=== PATIENT | female | born 1995 | race African-American/Black ===

== ENCOUNTER 2017-05-09 05:01 | Emergency (ER) | payer OTHER ==
[2017-05-09] MEDS ORDERED: ONDANSETRON 4 MG/2 ML VIAL IVPB ONE (05:12)
[2017-05-09] MEDS ORDERED: SODIUM CHLORIDE 1,000 ML IV STA (05:12)
--- NOTE | 2017-05-09 05:13 | PDOC ---
History of Present Illness - General Chief Complaint: Pain Stated Complaint: ABD PAIN Time Seen by Provider: 05/09/17 05:11 History Source: Patient - History of Present Illness Initial Comments: 05/09/17 05:22 21 year old female c/o right flank pain and dysuria since 4 pm. patient reports nausea, vomiting 6x, prior to arrival denies pmhx Past History - Past Medical History Allergies/Adverse Reactions: Allergies Allergy/AdvReac Type Severity Reaction Status Date / Time No Known Allergies Allergy Verified 05/09/17 05:08 Home Medications: Ambulatory Orders Loratadine [Claritin] 10 mg PO DAILY 05/09/17 - Psycho/Social/Smoking Cessation Hx Suicidal Ideation: No Smoking History: Never smoked Hx Alcohol Use: No Drug/Substance Use Hx: No Substance Use Type: None Review of Systems - Review of Systems Able to Perform ROS?: Yes Is the patient limited Indian proficient: No ABD/GI: Yes: Nausea, Vomiting. No: Symptoms Reported, See HPI, Abdominal Distended, Abd. Pain w/ defecation, Blood Streaked Bowels, Constipated, Diarrhea , Difficulty Swallowing, Poor Appetite, Poor Fluid Intake, Rectal Bleeding, Indigestion, Abdominal cramping, Tarry Stools, Other : Yes: Dysuria, Flank Pain *Physical Exam - Vital Signs Last Vital Signs Temp Pulse Resp BP Pulse Ox 98.3 F 93 H 22 106/77 99 05/09/17 05:09 05/09/17 05:09 05/09/17 05:09 05/09/17 05:09 05/09/17 05:09 - Physical Exam General Appearance: Yes: Appropriately Dressed Respiratory/Chest: positive: Lungs Clear, Normal Breath Sounds Gastrointestinal/Abdominal: negative: Tender Musculoskeletal: positive: CVA Tenderness, CVA Tenderness (R) Integumentary: positive: Normal Color, Dry, Warm Neurologic: positive: Fully Oriented, Alert, Normal Mood/Affect ED Treatment Course - LABORATORY CBC & Chemistry Diagram: 05/09/17 05:28 05/09/17 05:28 Progress Note - Progress Note Progress Note: A: renal colic vs pyelonephritis P: cbc cmp Ua ucx spira; CT IVF pain control zofran *DC/Admit/Observation/Transfer Diagnosis at time of Disposition: Renal colic on right side
--- NOTE | 2017-05-09 05:17 | PDOC ---
*Physical Exam - Vital Signs Last Vital Signs Temp Pulse Resp BP Pulse Ox 98.3 F 93 H 22 106/77 99 05/09/17 05:09 05/09/17 05:09 05/09/17 05:09 05/09/17 05:09 05/09/17 05:09 Medical Decision Making - Medical Decision Making 05/09/17 05:17 agree with care from ASSOCIATE PROFESSOR OF BIOLOGY Elmer
[2017-05-09] MEDS ORDERED: KETOROLAC TROMETHAMINE 30 MG/1 ML VIAL IVPUSH ONE (05:27)
[2017-05-09 05:56] LABS: URINE APPEARANCE SLCLOUDY; URINE BILIRUBIN NEGATIVE (NEGATIVE); URINE BLOOD 2+ (NEGATIVE); URINE COLOR YELLOW; URINE GLUCOSE (UA) NEGATIVE (NEGATIVE); URINE KETONE NEGATIVE (NEGATIVE); URINE NITRITE NEGATIVE (NEGATIVE); URINE PROTEIN NEGATIVE (NEGATIVE)
[2017-05-09 05:57] LABS: BASOPHIL 0.3 % (0-2.0); MCHC 33.4 g/dl (32.0-36.0); MEAN CELL VOLUME 83.8 fl (80-96); MEAN PLT VOLUME 8.4 fl (7.5-11.1); NEUTROPHILS 63.8 % (42.8-82.8); PLATELET COUNT 229 K/MM3 (134-434); RDW 13.4 % (11.6-15.6); WHITE BLOOD COUNT 6.1 K/mm3 (4.0-10.0)
[2017-05-09] MEDS ORDERED: KETOROLAC TROMETHAMINE 30 MG/1 ML VIAL ONE (05:57)
[2017-05-09] MEDS ORDERED: ONDANSETRON 4 MG/2 ML VIAL ONE (05:57)
[2017-05-09 06:01] LABS: URINE LEUK ESTERASE 2+ (NEGATIVE)
[2017-05-09 06:09] VITALS: TEMP 98.3; BMI 27.4
[2017-05-09 06:29] LABS: ALBUMIN 3.5 g/dl (3.4-5.0); ANION GAP 6 (8-16); BILIRUBIN,TOTAL 0.2 mg/dL (0.2-1.0); CALCIUM 8.7 mg/dL (8.5-10.1); CO2 29 mmol/L (21-32); CREATININE 0.9 mg/dL (0.55-1.02); GLUCOSE,RANDOM 109 mg/dL (74-106); SGOT/AST 13 U/L (15-37); SGPT/ALT 24 U/L (12-78)
[2017-05-09 06:30] LABS: ALK PHOS 80 U/L (45-117)
--- NOTE | 2017-05-09 07:11 | PDOC ---
*Physical Exam - Vital Signs Last Vital Signs Temp Pulse Resp BP Pulse Ox 98.3 F 93 H 22 106/77 99 05/09/17 05:09 05/09/17 05:09 05/09/17 05:09 05/09/17 05:09 05/09/17 05:09 ED Treatment Course - LABORATORY CBC & Chemistry Diagram: 05/09/17 05:28 05/09/17 05:28 - ADDITIONAL ORDERS Additional order review: Laboratory Results 05/09/17 05/09/17 05:28 05:28 Sodium 140 Potassium 3.8 Chloride 105 Carbon Dioxide 29 Anion Gap 6 L BUN 18 Creatinine 0.9 Creat Clearance w eGFR > 60 Random Glucose 109 H Calcium 8.7 Total Bilirubin 0.2 AST 13 L ALT 24 Alkaline Phosphatase 80 Total Protein 7.0 Albumin 3.5 Lipase 129 Serum , Qual Negative Urine Color Yellow Urine Appearance Slcloudy Urine pH 5.0 Urine Protein Negative Urine Glucose (UA) Negative Urine Ketones Negative Urine Blood 2+ H Urine Nitrite Negative Urine Bilirubin Negative Urine Urobilinogen 2.0 H Ur Leukocyte Esterase 2+ H 05/09/17 05:28 RBC 4.55 MCV 83.8 MCHC 33.4 RDW 13.4 MPV 8.4 Neutrophils % 63.8 Lymphocytes % 27.6 Monocytes % 6.3 Eosinophils % 2.0 Basophils % 0.3 - Medications Given in the ED: ED Medications Discontinued Medications Generic Name Dose Route Start Last Admin Trade Name Freq PRN Reason Stop Dose Admin Sodium Chloride 1,000 mls @ 1,000 mls/hr 05/09/17 05:12 05/09/17 05:52 Normal Saline - IV 05/09/17 06:11 1,000 mls/hr ASDIR STA Administration Ketorolac Tromethamine 30 mg 05/09/17 05:27 05/09/17 06:02 Toradol Injection - IVPUSH 05/09/17 05:28 30 mg ONCE ONE Administration Ondansetron HCl 4 mg 05/09/17 05:12 05/09/17 06:02 Zofran Injection IVPB 05/09/17 05:13 4 mg ONCE ONE Administration Medical Decision Making - Medical Decision Making 05/09/17 07:10 Sign out received from Janelle Payne NP, awaiting test to sent pt. for spiral CT to r/o kidney stones 05/09/17 08:19 CT results Impression: Multiple tiny right renal stones. Tiny left bladder stone may reflect a recently passed stone from either ureter without evidence of hydronephrosis or hydroureter. Pt. also has 2+ leukocytes. Will discharge home at this time. Will treat for UTI and stone at this time. Will precribe Keflex, and ibuprofen. Pt. was instructed to increase her fluid intake. She was also given a strainer to try and catch the stone in her bladder. Pt. is to follow up with with her PCP and urology. Pt, understands all discharge instructions and all questions were answered at this time. *DC/Admit/Observation/Transfer Diagnosis at time of Disposition: Renal colic on right side, Calculus of kidney Urinary tract infection Qualifiers: Urinary tract infection type: site unspecified Hematuria presence: with hematuria Qualified Code(s): N39.0 - Urinary tract infection, site not specified ; R31.9 - Hematuria, unspecified - Discharge Dispostion Disposition: HOME Condition at time of disposition: Improved Admit: No - Referrals Referrals: Sara Patterson MD [Primary Care Provider] - Elmer Lin MD [Staff Physician] - - Patient Instructions Printed Discharge Instructions: DI for Kidney Stones, DI for Urinary Tract Infection (UTI) Additional Instructions: You have stones in your right kidney and a stone in your bladder. Stones in the kidneys are generally not painful. The stone in your bladder is most likely a stone that you passed this evening. The pain should resolve. You may be sore for the next 24-48 hours. Take ibuprofen 800mg TID for the next week. You also have a urinary tract infection. Take the antibiotic as prescribed and take the full dose even if you feel better. Follow up with your primary care doctor within the week. You should also follow up with a urologist. Their number is attached in the discharge instructions. If you have worsening pain, fevers, pain on urination, chills, nausea, or vomiting, or any changes in your symptoms return to the ED.
[2017-05-09 08:30] LABS: URINE BACTERIA FEW /hpf (NONE SEEN); URINE HYALINE CAST 1 /lpf; URINE MUCUS MANY; URINE RBC 52 /hpf (0-3); URINE WBC 23 /hpf (3-5)
[2017-05-09 09:03] VITALS: BP 125/85; PULSE 91
== END 2017-05-09 09:04 | disposition home or self-care (01) ==
LOC: JER 05:01
PROC: 3E0333Z Introduction of Anti-inflammatory into Peripheral Vein, Percutaneous Approach (ICD-10-PCS; principal; 2017-05-09)
PROC: 3E033GC Introduction of Other Therapeutic Substance into Peripheral Vein, Percutaneous Approach (ICD-10-PCS; 2017-05-09)
PROC: 3E0337Z Introduction of Electrolytic and Water Balance Substance into Peripheral Vein, Percutaneous Approach (ICD-10-PCS; 2017-05-09)
DX: N23 Unspecified renal colic (principal)
CPT/HCPCS: 36415; 74176; 80053; 81003; 81015; 83690; 84703; 85025; 87086; 87186; 99284-25

== ENCOUNTER 2018-03-10 16:27 | Emergency (ER) | payer OTHER ==
[2018-03-10 16:40] VITALS: BMI 24.8
--- NOTE | 2018-03-10 18:07 | PDOC ---
History of Present Illness - History of Present Illness Initial Comments: 03/10/18 18:06 22 yo F with no significant pmh who p/w abdominal pain. Reports 1 week of remitting, sharp spasmodic abdominal pain, with no identifiable triggers or alleviators. Endorses nausea without vomiting, and 1-2 stools per day, with absent BPR or loose stools. Denies postprandial pain. Denies F/C, N/V, CP, SOB, abdominal pain, diarrhea, constipation, vaginal bleeding/burning/itching, dyspareurnia, pelvic pain. urinary complaints, hematuria, weakness, lightheadedness, sensory changes. Recently evaluated at [facility] this AM and started on antibiotics for vaginosis. PMHx: as noted above. Denies h/o endoscopy. Denies h/o abdominal surgery. Does not f/w GI. ROS: as noted above SHx: Intermittent Etoh. Denies tobacco, or IVDA. Recreational marijuanna. No recent travel, hiking, camping. Denies h/o STI's. Mutliple sexual partners with intermittent OCP use. <Ralph Martinez - Last Filed: 03/10/18 22:05> <Reji Martinez - Last Filed: 03/10/18 22:15> - General Chief Complaint: Pain, Acute Stated Complaint: ABD PAIN Time Seen by Provider: 03/10/18 17:44 Past History - Past Medical History Cardiac Disorders: Yes (MURMUR) COPD: No Psychiatric Problems: Yes (ANXIETY) - Suicide/Smoking/Psychosocial Hx Smoking History: Never smoked Hx Alcohol Use: No Drug/Substance Use Hx: No Substance Use Type: None, Marijuana <Ralph Martinez - Last Filed: 03/10/18 22:05> <Reji Martinez - Last Filed: 03/10/18 22:15> - Past Medical History Allergies/Adverse Reactions: Allergies Allergy/AdvReac Type Severity Reaction Status Date / Time No Known Allergies Allergy Verified 03/10/18 16:36 Home Medications: Ambulatory Orders Cephalexin [Keflex] 500 mg PO BID 7 Days #14 capsule MDD 2 tab 03/10/18 Trazodone HCl 50 mg PO HS 03/10/18 Review of Systems - Review of Systems Comments:: 03/10/18 18:06 GENERAL/CONSTITUTIONAL: No fever or chills. No weakness. HEAD, EYES, EARS, NOSE AND THROAT: No change in vision. No ear pain or discharge. No sore throat. CARDIOVASCULAR: No chest pain or shortness of breath RESPIRATORY: No cough, wheezing, or hemoptysis. GASTROINTESTINAL:+ abdominal pain and nausea. No vomiting, diarrhea or constipation. GENITOURINARY: No dysuria, frequency, or change in urination. MUSCULOSKELETAL: No joint or muscle swelling or pain. No neck or back pain. SKIN: No rash NEUROLOGIC: No headache, vertigo, loss of consciousness, or change in strength/ sensation. ENDOCRINE: No increased thirst. No abnormal weight change HEMATOLOGIC/LYMPHATIC: No anemia, easy bleeding, or history of blood clots. ALLERGIC/IMMUNOLOGIC: No hives or skin allergy. <Ralph Martinez - Last Filed: 03/10/18 22:05> *Physical Exam - Vital Signs Last Vital Signs Temp Pulse Resp BP Pulse Ox 98.1 F 80 19 107/56 99 03/10/18 16:36 03/10/18 16:36 03/10/18 16:36 03/10/18 16:36 03/10/18 16:36 - Physical Exam Comments: 03/10/18 18:06 GENERAL: Awake, alert, and fully oriented, in no acute distress HEAD: No signs of trauma, normocephalic, atraumatic EYES: PERRLA, EOMI, sclera anicteric, conjunctiva clear ENT: Hearing grossly normal, nares patent, oropharynx clear without exudates. Moist mucosa NECK: Normal ROM, supple, no lymphadenopathy, JVD, or masses LUNGS: No distress, speaks full sentences, clear to auscultation bilaterally HEART: Regular rate and rhythm, normal S1 and S2, no murmurs, rubs or gallops, peripheral pulses normal and equal bilaterally. ABDOMEN: Soft, diffusely ttp, normoactive bowel sounds. No guarding, no rebound. No masses. Neg CVA ttp. : Normal appearing external genitalia. Vaginal vault with white, frothy discharge. Cervical os closed. Absent CMT on BM. EXTREMITIES : Normal inspection, Normal range of motion, no edema. No clubbing or cyanosis. SKIN: Warm, Dry, normal turgor, no rashes or lesions noted <Ralph Martinez - Last Filed: 06/04/18 22:05> - Vital Signs Last Vital Signs Temp Pulse Resp BP Pulse Ox 98 F 77 17 115/71 99 03/10/18 20:15 03/10/18 20:15 03/10/18 20:15 03/10/18 20:15 03/10/18 20:15 <Reji Martinez - Last Filed: 03/10/18 22:15> ED Treatment Course - LABORATORY CBC & Chemistry Diagram: 03/10/18 18:45 03/10/18 18:45 <Ralph Martinez - Last Filed: 03/10/18 22:05> - LABORATORY CBC & Chemistry Diagram: 03/10/18 18:45 03/10/18 18:45 - ADDITIONAL ORDERS Additional order review: Laboratory Results 03/10/18 03/10/18 03/10/18 18:49 18:45 18:43 Sodium 139 Potassium 4.3 Chloride 104 Carbon Dioxide 28 Anion Gap 7 L BUN 16 Creatinine 0.8 Creat Clearance w eGFR > 60 Random Glucose 77 Calcium 8.9 Total Bilirubin 0.2 AST 11 L ALT 18 Alkaline Phosphatase 81 Total Protein 7.4 Albumin 3.9 Lipase 172 Urine Color Yellow Urine Appearance Slcloudy Urine pH 7.0 D Ur Specific Anchor 1.026 Urine Protein Negative Urine Glucose (UA) Negative Urine Ketones Negative Urine Blood Negative Urine Nitrite Positive Urine Bilirubin Negative Urine Urobilinogen 2.0 H Ur Leukocyte Esterase 1+ H Urine WBC (Auto) 10 Urine RBC (Auto) 3 Ur Epithelial Cells Moderate Urine Bacteria Few Urine Mucus Few Urine HCG, Qual Negative 03/10/18 18:45 RBC 4.55 MCV 85.1 MCHC 33.3 RDW 13.9 MPV 8.8 Neutrophils % 58.9 Lymphocytes % 31.5 Monocytes % 7.9 Eosinophils % 1.3 Basophils % 0.4 - RADIOLOGY Radiology Studies Ordered: Category Date Time Status KUB (KID UR & BLAD) [RAD] Stat Radiology 03/10/18 20:59 Taken ABDOMEN US [US] Stat Ultrasound 03/10/18 21:00 Completed - Medications Given in the ED: ED Medications Discontinued Medications Generic Name Dose Route Start Last Admin Trade Name Freq PRN Reason Stop Dose Admin Acetaminophen 1,000 mg 03/10/18 21:01 03/10/18 21:06 Ofirmev Injection - IVPB 03/10/18 21:02 1,000 mg ONCE ONE Administration <MichelleReji - Last Filed: 03/10/18 22:15> Medical Decision Making - Medical Decision Making 03/10/18 19:17 22 yo F with no significant pmh who p/w diffuse abdominal pain x 1 week. VSS, AF. Diffusely ttp on abdominal exam. Will consider enteritis, colitis. Differential also includes cystitis, pyelnonephritis, biliary pathology, PID, ovarian pathology. ED Course: CBC, CMP, Lipase RUQ U/S, ABD RAD 03/10/18 20:38 CBC,CMP: Unremarkable Lipase Neg 03/10/18 21:16 UA with bacteria, Leuk est +1, and 10 wbc. Keflex sent to pharmacy Patient stable for d/c with return precautions. Advised to f/u with PMD. 03/10/18 21:59 <Ralph Martinez - Last Filed: 03/10/18 22:05> *DC/Admit/Observation/Transfer - Discharge Dispostion Decision to Admit order: No - Attestations Physician Attestion: 03/10/18 18:07 I attest to the information provided in this note. <Ralph Martinez - Last Filed: 03/10/18 22:05> <Reji Martinez - Last Filed: 03/10/18 22:15> Diagnosis at time of Disposition: Kidney calculi UTI (urinary tract infection) Qualifiers: Urinary tract infection type: site unspecified Hematuria presence: without hematuria Qualified Code(s): N39.0 - Urinary tract infection, site not specified - Discharge Dispostion Disposition: HOME Condition at time of disposition: Stable - Prescriptions Prescriptions: Cephalexin [Keflex] 500 mg PO BID 7 Days #14 capsule MDD 2 tab - Referrals Referrals: Sara Patterson MD [Primary Care Provider] - Tavares Kingston MD., [Staff Physician] - - Patient Instructions Printed Discharge Instructions: DI for Abdominal Pain-Adult Additional Instructions: Please return to the emergency department with any new or worsening symptoms, fever severe worsening abdominal pain,for any or concerns. Please follow up with your primary care physician within 72 hours. Please take Keflex two times a day for 7 days. Follow up with Dr. Kingston urology this week - Post Discharge Activity
[2018-03-10 18:58] LABS: HCG,QUALITATIVE URINE NEGATIVE; URINE APPEARANCE SLCLOUDY; URINE BILIRUBIN NEGATIVE (<2.0 mg/dL); URINE COLOR YELLOW; URINE GLUCOSE (UA) NEGATIVE (NEGATIVE); URINE KETONE NEGATIVE (NEGATIVE); URINE NITRITE POSITIVE (NEGATIVE); URINE PROTEIN NEGATIVE (NEGATIVE)
[2018-03-10 19:04] LABS: URINE LEUK ESTERASE 1+ (NEGATIVE)
[2018-03-10 19:19] LABS: EPI CELLS MODERATE /HPF (FEW); URINE BACTERIA FEW /hpf (NONE SEEN); URINE MUCUS FEW
[2018-03-10 19:23] LABS: BASO % 0.4 % (0-2.0); EOS % 1.3 % (0-4.5); HEMATOCRIT 38.7 % (32.4-45.2); HEMOGLOBIN 12.9 GM/dL (10.7-15.3); LYMPH % 31.5 % (8-40); MCH 28.4 pg (25.7-33.7); MCHC 33.3 g/dl (32.0-36.0); MEAN CELL VOLUME 85.1 fl (80-96); MEAN PLT VOLUME 8.8 fl (7.5-11.1); MONO % 7.9 % (3.8-10.2); NEUT % 58.9 % (42.8-82.8); PLATELET COUNT 275 K/MM3 (134-434); RBC 4.55 M/mm3 (3.60-5.2); RDW 13.9 % (11.6-15.6); WHITE BLOOD COUNT 6.9 K/mm3 (4.0-10.0)
[2018-03-10 19:42] LABS: ALBUMIN 3.9 g/dl (3.4-5.0); ALK PHOS 81 U/L (45-117); ANION GAP 7 (8-16); BILIRUBIN,TOTAL 0.2 mg/dL (0.2-1.0); BLOOD UREA NITROGEN 16 mg/dL (7-18); CALCIUM 8.9 mg/dL (8.5-10.1); CHLORIDE 104 mmol/L (98-107); CO2 28 mmol/L (21-32); CREATININE 0.8 mg/dL (0.55-1.02); GLUCOSE,RANDOM 77 mg/dL (74-106); POTASSIUM 4.3 mmol/L (3.5-5.1); SGOT/AST 11 U/L (15-37); SGPT/ALT 18 U/L (12-78); SODIUM 139 mmol/L (136-145); TOT PROT 7.4 g/dl (6.4-8.2)
[2018-03-10 20:17] VITALS: BP 115/71; PULSE 77; TEMP 98
[2018-03-10] MEDS ORDERED: ACETAMINOPHEN 1000 MG/100 ML VIAL (NON FORMULARY) IVPB ONE (21:01)
[2018-03-10] MEDS ORDERED: ACETAMINOPHEN INJECTION 100 ML IVPB ONE (21:05)
--- NOTE | 2018-03-10 22:14 | PDOC ---
Attending Attestation - Resident Resident Name: Ralph Martinez - ED Attending Attestation I have performed the following: I have examined & evaluated the patient, The case was reviewed & discussed with the resident, I agree w/resident's findings & plan, Exceptions are as noted - HPI HPI: 03/10/18 22:15 Agree with resident's history of present illness. - Physicial Exam PE: 03/10/18 22:16 Agree with resident's physical exam. - Medical Decision Making 03/10/18 22:16 1 week history of intermittent abdominal discomfort patient seen and evaluated by her HUMAN RESOURCES ADVISOR earlier today diagnosed with yeast infection. No significant CVA tenderness no significant abdominal tenderness palpation no evidence of acute abdomen on patient's abdominal exam. No fever no white count low suspicion for acute surgical intra-abdominal process such as appendicitis. Most likely resolution of a passed kidney stone or small UTI. Very low suspicion for infected stone Discussed with patient's utility of CAT scan given 1 week of intermittent symptomatology we are in agreement that the possibility of acute surgical process is very low at this time she'll return to the ED for any fever Reiger's chills severe worsening persistent constant abdominal pain or for any concerns Findings, need follow-up and strict return instructions discussed with patient. <Reji Martinez - Last Filed: 03/10/18 22:15> - HPI HPI: 03/10/18 23:13 The patient is a 22 year old female with a significant PMH of anxiety and heart murmur who presents to the emergency department with 1 week of sharp remitting abdominal pain. The patient reports associated nausea with her abdominal pain. The patient reports that nothing worsened or alleviated her abdominal pain. She states that she normally passes 1-2 stools a day. The patient denies any fever, chills, vomit, diarrhea and constipation. She denies any urinary symptoms(It is noted that the patient began taking antibiotics for vaginosis this morning) . She denies any chest pain, shortness of breath, headache or dizziness. The patient denies any other complaints. Documentation prepared by Rut Doran, acting as senior medical director for Reji Martinez MD. <Rut Doran - Last Filed: 03/10/18 23:14>
--- NOTE | 2018-03-11 13:15 | EKG ---
Test Reason : Blood Pressure : / mmHG Vent. Rate : 068 BPM Atrial Rate : 068 BPM P-R Int : 178 ms QRS Dur : 092 ms QT Int : 374 ms P-R-T Axes : 050 039 026 degrees QTc Int : 397 ms NORMAL SINUS RHYTHM WITH SINUS ARRHYTHMIA NORMAL ECG WHEN COMPARED WITH ECG OF 07-MAR-2005 21:23, ST NO LONGER ELEVATED IN ANTERIOR LEADS NONSPECIFIC T WAVE ABNORMALITY NOW EVIDENT IN ANTERIOR LEADS Confirmed by MD BOBBY, AMELIE ([id number]) on 03/11/2018 1:15:03 PM Referred By: Confirmed By:AMELIE ROSALES MD
--- NOTE | 2018-03-13 07:48 | PDOC ---
Patient Follow-up (Call Back) - Post ED Follow - Up Condition at time of discharge: Stable Disposition at time of original discharge: HOME Reason for Call Back: Abnwl. Microbiology (Ucx preliminary shows LActose fermenting- bacilli and gram - jadon. Pt on keflex. Will await final report)
--- NOTE | 2018-03-14 09:35 | PDOC ---
Patient Follow-up (Call Back) - Post ED Follow - Up Condition at time of discharge: Stable Disposition at time of original discharge: HOME Reason for Call Back: Abnwl. Microbiology (+ecoli and citrobacter on ucx Pt on keflex which only covers ecoli, need bactrim or macrobid for citrobacter per cx Pt also had ultrasound done while in ED, which revealed a 4 mm stone in the right kidney. Spoke patient, has no dysuria, nausea, vomiting or fever, but still has some mild right flank pain. States after she was seen in the ED, was seen by her RACKET STRINGER who started her on another antibiotic so currently on 2 antibiotics, but does not remember the name of the second antibiotics. States she will go home on her lunch break today and call me back with the name of the abx to ensure that she is on the right antibiotics. Reasons to return to ER discussed with patient. States she is in the process of making an appointment with a urologist)
== END 2018-03-10 22:21 | disposition home or self-care (01) ==
LOC: JER 16:27
PROC: 3E033NZ Introduction of Analgesics, Hypnotics, Sedatives into Peripheral Vein, Percutaneous Approach (ICD-10-PCS; principal; 2018-03-10)
DX: N39.0 Urinary tract infection, site not specified (principal); N20.0 Calculus of kidney; F41.9 Anxiety disorder, unspecified; R01.0 Benign and innocent cardiac murmurs
CPT/HCPCS: 36415; 74018-TC-FY; 76700-TC; 80053; 81003; 81015; 83690; 84703; 85025; 87086; 87186; 87491; 87591; 93005; 93010; 96374; 99283-25; J0131

== ENCOUNTER 2018-03-31 05:33 | Emergency (ER) | payer OTHER ==
[2018-03-31 05:47] VITALS: BMI 25.6
[2018-03-31] MEDS ORDERED: ONDANSETRON 4 MG/2 ML VIAL IM ONE (06:00)
--- NOTE | 2018-03-31 06:06 | PDOC ---
History of Present Illness - General Chief Complaint: Pain Stated Complaint: SENT BY History Source: Parent(s) Exam Limitations: No Limitations - History of Present Illness Initial Comments: 03/31/18 06:00 Patient is a 22 year-old female here with complaints of right kidney stone which she has had for 3 weeks. Stone is in the right ureter 4 mm obstructing. She has a dull pain 2 days. States a few days ago and Saturday she had very sharp pain with nausea and vomiting but has been better since. Sent by urology for evaluation for possible removal of the stone. Urology: Dr. Srivastava PMHX: neg PSOCHX: neg ALL: NKDA GENERAL/CONSTITUTIONAL: [No fever or chills. No weakness. No weight change.] HEAD, EYES, EARS, NOSE AND THROAT: [No change in vision. No ear pain or discharge. No sore throat.] CARDIOVASCULAR: [No chest pain or shortness of breath.] RESPIRATORY: [No cough, wheezing, or hemoptysis.] GASTROINTESTINAL: (+) nausea, vomiting, (-) diarrhea or constipation. No rectal bleeding.] GENITOURINARY: (+) dysuria, frequency, or change in urination.] MUSCULOSKELETAL: [No joint or muscle swelling or pain. No neck or back pain.] SKIN AND BREASTS: [No rash or easy bruising.] NEUROLOGIC: [No headache, vertigo, loss of consciousness, or loss of sensation.] ENDOCRINE: [No increased thirst. No abnormal weight change.] HEMATOLOGIC/LYMPHATIC: [No anemia, easy bleeding, or history of blood clots.] ALLERGIC/IMMUNOLOGIC: [No hives or skin allergy. No latex allergy.] GENERAL: [The patient is awake, alert, and fully oriented, in no acute distress. ] HEAD: [Normal with no signs of trauma.] EYES: [Pupils equal, round and reactive to light, extraocular movements intact, sclera anicteric, conjunctiva clear.] ENT: [Ears normal, nares patent, oropharynx clear without exudates. Moist mucous membranes.] NECK: [Normal range of motion, supple without lymphadenopathy, JVD, or masses.] LUNGS: [Breath sounds equal, clear to auscultation bilaterally. No wheezes, and no crackles.] HEART: [Regular rate and rhythm, normal S1 and S2 without murmur, rub.] ABDOMEN: [Soft, nontender, normoactive bowel sounds. No guarding, no rebound. No masses, (+) mild right CVAT EXTREMITIES: [Normal range of motion, no edema. No clubbing or cyanosis. No cords, erythema, or tenderness.] NEUROLOGICAL: [Cranial nerves II through XII grossly intact. Normal speech, normal gait.] PSYCH: [Normal mood, normal affect.] SKIN: [Warm, Dry, normal turgor, no rashes or lesions noted.] Past History - Past Medical History Allergies/Adverse Reactions: Allergies Allergy/AdvReac Type Severity Reaction Status Date / Time No Known Allergies Allergy Verified 03/31/18 05:46 Home Medications: Ambulatory Orders Cephalexin [Keflex] 500 mg PO BID 7 Days #14 capsule MDD 2 tab 03/10/18 Trazodone HCl 50 mg PO HS 03/10/18 Cardiac Disorders: Yes (MURMUR) COPD: No Psychiatric Problems: Yes (ANXIETY) - Suicide/Smoking/Psychosocial Hx Smoking History: Never smoked Have you smoked in the past 12 months: No Information on smoking cessation initiated: No Hx Alcohol Use: No Drug/Substance Use Hx: No Substance Use Type: None, Marijuana *Physical Exam - Vital Signs Last Vital Signs Temp Pulse Resp BP Pulse Ox 98.6 F 77 20 121/75 99 03/31/18 05:46 03/31/18 05:46 03/31/18 05:46 03/31/18 05:46 03/31/18 05:46 ED Treatment Course - LABORATORY CBC & Chemistry Diagram: 03/31/18 06:56 03/31/18 06:56 Medical Decision Making - Medical Decision Making 03/31/18 06:00 Patient is a 22 year-old female here with complaints of right kidney stone which she has had for 3 weeks. Stone is in the right ureter 4 mm obstructing. 03/31/18 06:[address] Srivastava Recommendations nothing by mouth and labs Endorsed to AM team pending labs and admission. *DC/Admit/Observation/Transfer Diagnosis at time of Disposition: Hydronephrosis with renal and ureteral calculous obstruction - Referrals Referrals: Best Rojas MD [Primary Care Provider] - - Patient Instructions - Post Discharge Activity
[2018-03-31] MEDS ORDERED: ONDANSETRON 4 MG/2 ML VIAL ONE (06:13)
[2018-03-31] MEDS ORDERED: SODIUM CHLORIDE 1,000 ML IV SCH (06:45)
[2018-03-31 07:07] LABS: BASO % 0.6 % (0-2.0); EOS % 1.8 % (0-4.5); HEMATOCRIT 34.9 % (32.4-45.2); LYMPH % 30.9 % (8-40); MCH 28.8 pg (25.7-33.7); MCHC 34.5 g/dl (32.0-36.0); MEAN CELL VOLUME 83.5 fl (80-96); MEAN PLT VOLUME 8.3 fl (7.5-11.1); MONO % 7.8 % (3.8-10.2); NEUT % 58.9 % (42.8-82.8); PLATELET COUNT 239 K/MM3 (134-434); RBC 4.18 M/mm3 (3.60-5.2); RDW 13.8 % (11.6-15.6); WHITE BLOOD COUNT 5.1 K/mm3 (4.0-10.0)
[2018-03-31 07:30] LABS: ALBUMIN 3.5 g/dl (3.4-5.0); ALK PHOS 67 U/L (45-117); ANION GAP 7 (8-16); BILIRUBIN,TOTAL 0.4 mg/dL (0.2-1.0); BLOOD UREA NITROGEN 13 mg/dL (7-18); CALCIUM 8.4 mg/dL (8.5-10.1); CHLORIDE 107 mmol/L (98-107); CO2 27 mmol/L (21-32); CREATININE 0.7 mg/dL (0.55-1.02); GLUCOSE,RANDOM 70 mg/dL (74-106); POTASSIUM 4.1 mmol/L (3.5-5.1); SGOT/AST 13 U/L (15-37); SGPT/ALT 14 U/L (12-78); SODIUM 141 mmol/L (136-145); TOT PROT 6.6 g/dl (6.4-8.2)
--- NOTE | 2018-03-31 07:59 | PDOC ---
*Physical Exam - Vital Signs Last Vital Signs Temp Pulse Resp BP Pulse Ox 98.6 F 77 20 121/75 99 03/31/18 05:46 03/31/18 05:46 03/31/18 05:46 03/31/18 05:46 03/31/18 05:46 - Physical Exam General Appearance: Yes: Nourished, Appropriately Dressed. No: Apparent Distress (sitting in exam bed breathing easily) Gastrointestinal/Abdominal: positive: Normal Bowel Sounds, Flat. negative: Tender, Guarding, Rebound, Tenderness Musculoskeletal: negative: CVA Tenderness (R), CVA Tenderness (L) Integumentary: positive: Normal Color, Dry, Warm Neurologic: positive: Fully Oriented, Alert, Normal Mood/Affect, Normal Response ED Treatment Course - LABORATORY CBC & Chemistry Diagram: 03/31/18 06:56 03/31/18 06:56 - ADDITIONAL ORDERS Additional order review: 03/31/18 06:56 RBC 4.18 MCV 83.5 MCHC 34.5 RDW 13.8 MPV 8.3 Neutrophils % 58.9 Lymphocytes % 30.9 Monocytes % 7.8 Eosinophils % 1.8 Basophils % 0.6 - Medications Given in the ED: ED Medications Discontinued Medications Generic Name Dose Route Start Last Admin Trade Name Freq PRN Reason Stop Dose Admin Ondansetron HCl 4 mg 03/31/18 06:00 03/31/18 06:44 Zofran Injection IM 03/31/18 06:01 4 mg ONCE ONE Administration Medical Decision Making - Medical Decision Making 03/31/18 10:33 Patient is a 22-year-old female with past medical history of obstructing kidney stone who presents to the emergency department for surgery today. Patient states that her urologist told her to come to the emergency department for admission. On CT scan a 03/28/18 patient with 4mm obstructing kidney stone in the UVJ. Sign out received from ALIX Medina at 07:00. Spoke with Dr. raya as rehabilitate the patient will place disposition for ASU. Lab work is grossly normal. *DC/Admit/Observation/Transfer Diagnosis at time of Disposition: Hydronephrosis with renal and ureteral calculous obstruction - Discharge Dispostion Condition at time of disposition: Stable Decision to Admit order: Yes - Referrals Referrals: Best Rojas MD [Primary Care Provider] - - Patient Instructions - Post Discharge Activity
[2018-03-31 11:11] VITALS: TEMP 98.5
[2018-03-31 11:23] LABS: URINE APPEARANCE SLCLOUDY; URINE BILIRUBIN NEGATIVE (<2.0 mg/dL); URINE COLOR YELLOW; URINE GLUCOSE (UA) NEGATIVE (NEGATIVE); URINE KETONE 1+ (NEGATIVE); URINE LEUK ESTERASE NEGATIVE (NEGATIVE); URINE NITRITE POSITIVE (NEGATIVE); URINE PROTEIN NEGATIVE (NEGATIVE)
[2018-03-31 11:32] LABS: EPI CELLS RARE /HPF (FEW); URINE BACTERIA RARE /hpf (NONE SEEN); URINE HYALINE CAST 1 /lpf; URINE MUCUS MANY
--- NOTE | 2018-03-31 13:13 | CONSULT ---
Consult - text type - Consultation Consultation Note: CC: Right Renal Colic HPI: Patient with history of right ureteral stone with episodic nausea. Patient presented to the ER for evaluation. Renal colic has improved. Patient found to be . Patient is currently comfortable PE VSS; afet abd- mild right CVAT CT scan/labs/pelvic sono reviewed imp right colic with right ureteral stone which has not been passed according to the patient 5 wk pregnance plan d/c flomax increase fluids strain urine patient cleared for discharge and will follow-up in the office 25 minutes devoted to patient
--- NOTE | 2018-03-31 13:34 | PDOC ---
ED Treatment Course - LABORATORY CBC & Chemistry Diagram: 03/31/18 06:56 03/31/18 06:56 - ADDITIONAL ORDERS Additional order review: Laboratory Results 03/31/18 03/31/18 03/31/18 10:46 09:50 06:56 Sodium 141 Potassium 4.1 Chloride 107 Carbon Dioxide 27 Anion Gap 7 L BUN 13 Creatinine 0.7 Creat Clearance w eGFR > 60 Random Glucose 70 L Calcium 8.4 L Total Bilirubin 0.4 AST 13 L ALT 14 Alkaline Phosphatase 67 D Total Protein 6.6 Albumin 3.5 Beta HCG, Quant 1111.8 Urine Color Yellow Urine Appearance Slcloudy Urine pH 5.0 D Ur Specific [place] 1.018 Urine Protein Negative Urine Glucose (UA) Negative Urine Ketones 1+ H Urine Blood Negative Urine Nitrite Positive Urine Bilirubin Negative Urine Urobilinogen 2.0 H Ur Leukocyte Esterase Negative Urine WBC (Auto) 7 Urine RBC (Auto) 2 Ur Epithelial Cells Rare Urine Bacteria Rare Hyaline Casts 1 Urine Mucus Many 03/31/18 06:56 RBC 4.18 MCV 83.5 MCHC 34.5 RDW 13.8 MPV 8.3 Neutrophils % 58.9 Lymphocytes % 30.9 Monocytes % 7.8 Eosinophils % 1.8 Basophils % 0.6 - RADIOLOGY Radiology Studies Ordered: Category Date Time Status TRANSVAGINAL US PREG [US] Stat Ultrasound 03/31/18 11:34 Completed - Medications Given in the ED: ED Medications Discontinued Medications Generic Name Dose Route Start Last Admin Trade Name Freq PRN Reason Stop Dose Admin Ondansetron HCl 4 mg 03/31/18 06:00 03/31/18 06:44 Zofran Injection IM 03/31/18 06:01 4 mg ONCE ONE Administration Medical Decision Making - Medical Decision Making 03/31/18 14:30 Pt. with positive test prior to transfer up to the OR. Transvaginal US obtained showing a IUP at approximately [address] Rojas at bedside with patient stating that since she is , he cannot do the procedure today. Pt appears comfortable at bedside so he agrees to have the patient follow up in his office later this week. Pt to be d/c'd home with pain managment, and urology follow up. Pt states that she is also following up with her dulite machine bluer today. Pt also with nitrite positive urine. Given , will treat for UTI. Abx sent to the pharmacy. Return precautions given. Pt. understands all dc instructions and all questions were answered. *DC/Admit/Observation/Transfer Diagnosis at time of Disposition: Hydronephrosis with renal and ureteral calculous obstruction - Discharge Dispostion Disposition: HOME Condition at time of disposition: Stable Decision to Admit order: No - Prescriptions Prescriptions: Cephalexin Monohydrate [Keflex -] 500 mg PO BID #14 capsule - Referrals Referrals: Best Rojas MD [Primary Care Provider] - - Patient Instructions Printed Discharge Instructions: DI for Kidney Stones, DI for Abdominal Pain -- Early Additional Instructions: Your currently 5 weeks based on ultrasound. 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 You also have a urinary tract infection. Keflex was sent to your pharmacy. Please drink plenty of fluids and strain urine to hopefully catch the kidney stone. Please follow-up with on as previously arranged. Return to the emergency department developed fevers, cannot urinate, worsening back pain, or give any changes in your symptoms. - Post Discharge Activity
[2018-03-31 13:42] VITALS: BP 130/71; PULSE 92
== END 2018-03-31 13:42 | disposition home or self-care (01) ==
LOC: JER 05:33 → JASUSAT 10:16 → JER 13:42
PROC: 3E0337Z Introduction of Electrolytic and Water Balance Substance into Peripheral Vein, Percutaneous Approach (ICD-10-PCS; principal; 2018-03-31)
PROC: 3E023GC Introduction of Other Therapeutic Substance into Muscle, Percutaneous Approach (ICD-10-PCS; 2018-03-31)
DX: O26.891 Other specified pregnancy related conditions, first trimester (principal); O26.831 Pregnancy related renal disease, first trimester; N13.2 Hydronephrosis with renal and ureteral calculous obstruction; Z3A.01 Less than 8 weeks gestation of pregnancy
CPT/HCPCS: 36415; 76817-TC; 80053; 81003; 81015; 84702; 85025; 96360; 96361; 96372; 99284-25; J7030

== ENCOUNTER 2018-09-11 21:02 | Emergency (ER) | payer OTHER ==
[2018-09-11 21:09] VITALS: BP 124/70; PULSE 116; TEMP 98.7; BMI 25.6
--- NOTE | 2018-09-11 21:09 | PDOC ---
Rapid Medical Evaluation Time Seen by Provider: 09/11/18 21:06 Medical Evaluation: Allergies Allergy/AdvReac Type Severity Reaction Status Date / Time No Known Allergies Allergy Verified 03/31/18 05:46 I have performed a brief in-person evaluation of this patient. The patient presents with a chief complaint of: fever and abdominal pain. was at urgent care who said she had a UTI and thought she may have a bladder infection and sent her here Pertinent physical exam findings: +right CVA TTP I have ordered the following: labs, UA/hcg/culture The patient will proceed to the ED for further evaluation. Discharge Disposition - Diagnosis UTI (urinary tract infection), Fever - Referrals - Patient Instructions - Post Discharge Activity
[2018-09-11 21:57] LABS: BASO % 0.2 % (0-2.0); HEMATOCRIT 39.5 % (32.4-45.2); HEMOGLOBIN 13.9 GM/dL (10.7-15.3); LYMPH % 9.6 % (8-40); MCH 29.6 pg (25.7-33.7); MCHC 35.2 g/dl (32.0-36.0); MEAN CELL VOLUME 84.2 fl (80-96); MEAN PLT VOLUME 9.2 fl (7.5-11.1); MONO % 4.4 % (3.8-10.2); NEUT % 85.8 % (42.8-82.8); PLATELET COUNT 234 K/MM3 (134-434); RDW 13.4 % (11.6-15.6); WHITE BLOOD COUNT 9.9 K/mm3 (4.0-10.0)
--- NOTE | 2018-09-11 22:00 | PDOC ---
History of Present Illness - General Chief Complaint: Urinary Problem Stated Complaint: UTI(SENT BY URGENT CARE) Time Seen by Provider: 09/11/18 21:06 - History of Present Illness Initial Comments: 09/11/18 21:59 22 yo F with h/o neprholithaisis who p/w R flank pain, and suprapubic pain. Patient reports 2 days of worsening crampy, unremitting, R sided flank pain, and sharp spasmodic suprpapubic pain. Pain non positional, and worse with touch. Increased urinary urgency and frequency x 2 days. 1 day of diffuse myalgias. No identifiable alleviators. Patient referred by urgent care following abnml UA, and elevated WBC. Here for pyelo eval. Nml bowel habits, appetite.Pt. scheduled for outpt. urology apt. 10/24. Prior UA ( 06/24) with E.coli sensitive to Bactrim. Patient denies N/V, F,C, CP, SOB, urinary complaints, abdominal pain, diarrhea, hematuria, irregular vaginal bleeding, BPR, constipation, lightheadedness, weakness, sensory changes. PMHx: as noted above ROS: as noted Allergies: NKDA Past History - Past Medical History Allergies/Adverse Reactions: Allergies Allergy/AdvReac Type Severity Reaction Status Date / Time No Known Allergies Allergy Verified 09/11/18 21:10 Home Medications: Ambulatory Orders traZODone HCL [Trazodone HCl] 50 mg PO HS 03/10/18 Cephalexin Monohydrate [Keflex -] 500 mg PO BID #14 capsule 03/31/18 Sulfamethoxazole/Trimethoprim [Bactrim Ds Tablet] 1 each PO BID 14 Days #28 tablet MDD 2 tab 09/11/18 Cardiac Disorders: Yes (MURMUR) COPD: No Psychiatric Problems: Yes (ANXIETY) - Immunization History Immunization Up to Date: Yes - Suicide/Smoking/Psychosocial Hx Smoking History: Never smoked Have you smoked in the past 12 months: No Hx Alcohol Use: No Drug/Substance Use Hx: No Substance Use Type: None, Marijuana Review of Systems - Review of Systems Comments:: 09/11/18 21:59 GENERAL/CONSTITUTIONAL: No fever or chills. No weakness. HEAD, EYES, EARS, NOSE AND THROAT: No change in vision. No ear pain or discharge. No sore throat. CARDIOVASCULAR: No chest pain or shortness of breath RESPIRATORY: No cough, wheezing, or hemoptysis. GASTROINTESTINAL: + R flank pain. No nausea, vomiting, diarrhea or constipation. GENITOURINARY: + frequency and change in urination. MUSCULOSKELETAL: No joint or muscle swelling or pain. No neck or back pain. SKIN: No rash NEUROLOGIC:+ headache. No vertigo, loss of consciousness, or change in strength/ sensation. ENDOCRINE: No increased thirst. No abnormal weight change HEMATOLOGIC/LYMPHATIC: No anemia, easy bleeding, or history of blood clots. ALLERGIC/IMMUNOLOGIC: No hives or skin allergy. *Physical Exam - Vital Signs Last Vital Signs Temp Pulse Resp BP Pulse Ox 98.7 F 116 H 18 124/70 100 09/11/18 21:07 09/11/18 21:07 09/11/18 21:07 09/11/18 21:07 09/11/18 21:07 - Physical Exam Comments: 09/11/18 21:59 GENERAL: Awake, alert, and fully oriented, in no acute distress HEAD: No signs of trauma, normocephalic, atraumatic EYES: PERRLA, EOMI, sclera anicteric, conjunctiva clear ENT: Hearing grossly normal, nares patent, oropharynx clear without exudates. Moist mucosa NECK: Normal ROM, supple, no lymphadenopathy, JVD, or masses LUNGS: No distress, speaks full sentences, clear to auscultation bilaterally HEART: Regular rate and rhythm, normal S1 and S2, no murmurs, rubs or gallops, peripheral pulses normal and equal bilaterally. ABDOMEN: + Suprpapubic ttp, and R CVA ttp. Soft, NDS, normoactive bowel sounds. No guarding, no rigidity, no rebound. No masses EXTREMITIES : Normal inspection, Normal range of motion, no edema. No clubbing or cyanosis. SKIN: Warm, Dry, normal turgor, no rashes or lesions noted Moderate Sedation - Procedure Monitoring Vital Signs: Procedure Monitoring Vital Signs Temperature 98.7 F 09/11/18 21:07 Pulse Rate 116 H 09/11/18 21:07 Respiratory Rate 18 09/11/18 21:07 Blood Pressure 124/70 09/11/18 21:07 O2 Sat by Pulse Oximetry (%) 100 09/11/18 21:07 ED Treatment Course - LABORATORY CBC & Chemistry Diagram: 09/11/18 21:22 09/11/18 21:22 Medical Decision Making - Medical Decision Making 09/11/18 22:12 22 yo F with h/o neprholithaisis who p/w R flank pain, increased urinary frequency, and suprapubic pain. HR 116, vitals otherwise wnl, A&Ox3. Will evaluate for nephrolithaisis, obstructive uropathy, pyelonephritis, cystitis. Differential also includes colitis, appendicitis, ovarian pathology, . Ed Course: CBC,CMP, UA, UCx, HCG NS, Toradol 30 mg IV 09/11/18 22:41 BUN/CR: 10/0.8 WBC: 9.9 09/11/18 22:42 UA: 633 WBC, 3 RBC, Nitrite neg, 3 + LE HCG: Neg 09/11/18 23:36 Bactrim PO DS Bactrim PO DS sent to pharmacy Patient non toixc, 0/4 SIRS criteria. Patient tolerating PO intake stable for d/c with return precautions. Will f/u with Urology. *DC/Admit/Observation/Transfer Diagnosis at time of Disposition: UTI (urinary tract infection), Fever, Pyelonephritis - Discharge Dispostion Condition at time of disposition: Stable Decision to Admit order: No - Referrals Referrals: Kale Quispe MD [Staff Physician] - - Patient Instructions Printed Discharge Instructions: DI for Kidney Infection Additional Instructions: Please return to the emergency department with any new or worsening symptoms or concerns. Please follow up with your primary care physician within 72 hours. Please take Bactrim two times daily for 14 days. Please follow up with Urology within 24 hours. - Post Discharge Activity - Attestations Physician Attestion: 09/11/18 21:59 I attest to the information provided in this note.
[2018-09-11 22:09] LABS: HCG,QUALITATIVE URINE Negative
[2018-09-11 22:11] LABS: URINE APPEARANCE CLOUDY; URINE BILIRUBIN NEGATIVE (<2.0 mg/dL); URINE COLOR YELLOW; URINE GLUCOSE (UA) NEGATIVE (NEGATIVE); URINE KETONE NEGATIVE (NEGATIVE); URINE LEUK ESTERASE 3+ (NEGATIVE); URINE NITRITE NEGATIVE (NEGATIVE); URINE PROTEIN 1+ (NEGATIVE); URINE UROBILINOGEN NEGATIVE mg/dL (0.2-1.0)
[2018-09-11 22:14] LABS: EPI CELLS RARE /HPF (FEW); URINE HYALINE CAST 2 /lpf; URINE MUCUS FEW
[2018-09-11] MEDS ORDERED: SODIUM CHLORIDE 1,000 ML IV STA (22:14)
[2018-09-11 22:31] LABS: ALBUMIN 3.7 g/dl (3.4-5.0); ALK PHOS 61 U/L (45-117); ANION GAP 11 MMOL/L (8-16); BILIRUBIN,TOTAL 0.8 mg/dL (0.2-1); BLOOD UREA NITROGEN 10 mg/dL (7-18); CHLORIDE 100 mmol/L (98-107); CO2 25 mmol/L (21-32); CREATININE 0.8 mg/dL (0.55-1.3); GLUCOSE,RANDOM 114 mg/dL (74-106); SGOT/AST 23 U/L (15-37); SGPT/ALT 21 U/L (13-61); SODIUM 135 mmol/L (136-145); TOT PROT 7.9 g/dl (6.4-8.2)
[2018-09-11] MEDS ORDERED: KETOROLAC TROMETHAMINE 30 MG/1 ML VIAL IVPUSH ONE (22:41)
[2018-09-11] MEDS ORDERED: KETOROLAC TROMETHAMINE 30 MG/1 ML VIAL ONE (22:43)
[2018-09-11 23:17] LABS: POTASSIUM 4.2 mmol/L (3.5-5.1)
[2018-09-11] MEDS ORDERED: SULFAMETHOXAZOLE/TRIMETHOPRIM 800MG/160MG D.S. TABLET PO ONE (23:44)
[2018-09-11] MEDS ORDERED: SULFAMETHOXAZOLE/TRIMETHOPRIM 800MG/160MG D.S. TABLET ONE ×2 (23:51→23:52)
--- NOTE | 2018-09-11 23:51 | PDOC ---
Attending Attestation - Resident Resident Name: Ralph Martinez - ED Attending Attestation I have performed the following: I have examined & evaluated the patient, The case was reviewed & discussed with the resident, I agree w/resident's findings & plan - HPI HPI: 09/11/18 23:45 healthy 22-year-old female with history of kidney stones presents with 2 days of progressive dysuria/frequency/suprapubic discomfort and now right flank pain with chills today. No nausea or vomiting, pain is constant and not intermittent , unlike her previous renal colic. Last UTI was in March, treated with antibiotics without complications, no other complaints. No measured fevers. seen at urgent care yesterday and prescribed abx, which she hasn't filled yet. - Physicial Exam PE: 09/11/18 23:45 Afebrile, heart rate 80 on my examination Well-appearing, feels better after Toradol Heart is regular, lungs are clear Abdomen is soft/nondistended. Suprapubic discomfort to palpation radiating along the right abdomen with positive right CVA tenderness, no right upper quadrant tenderness. No rash. - Medical Decision Making 09/11/18 23:46 22-year-old female presenting with chills, dysuria, right flank pain most consistent with pyelonephritis. Not clinically consistent with renal colic, no Sirs or sepsis. UA shows elevated white blood cells low red blood cells Prior culture from March 2018 shows sensitivity of 2 bacteria to Bactrim Given healthy and not immunocompromised, can discharge on oral antibiotic course with strict return precautions. No indication for emergent imaging. First dose abx given here.
== END 2018-09-12 00:27 | disposition home or self-care (01) ==
LOC: JER 21:02
PROC: 3E0337Z Introduction of Electrolytic and Water Balance Substance into Peripheral Vein, Percutaneous Approach (ICD-10-PCS; principal; 2018-09-11)
PROC: 3E0333Z Introduction of Anti-inflammatory into Peripheral Vein, Percutaneous Approach (ICD-10-PCS; 2018-09-11)
DX: N39.0 Urinary tract infection, site not specified (principal); B96.89 Other specified bacterial agents as the cause of diseases classified elsewhere; N12 Tubulo-interstitial nephritis, not specified as acute or chronic; Z87.442 Personal history of urinary calculi
CPT/HCPCS: 36415; 80053; 81003; 81015; 84703; 85025; 87086; 87186; 99282-25; J7030

== ENCOUNTER 2018-09-13 11:01 | Inpatient (IN) | payer OTHER ==
[2018-09-13] MEDS ORDERED: ACETAMINOPHEN 1000 MG/100 ML VIAL (NON FORMULARY) IVPB ONE (12:08)
[2018-09-13] MEDS ORDERED: SODIUM CHLORIDE 0.9% 500 ML INFUS.BAG IV ONE (12:12)
[2018-09-13] MEDS ORDERED: ACETAMINOPHEN INJECTION 100 ML IVPB ONE (12:19)
--- NOTE | 2018-09-13 12:43 | PDOC ---
History of Present Illness - General Chief Complaint: SIRS, Suspected/Possible Stated Complaint: DIFFICULTY BREATHING, BODYACHE Time Seen by Provider: 09/13/18 11:48 History Source: Patient Exam Limitations: Clinical Condition - History of Present Illness Initial Comments: 09/13/18 12:38 Patient with history of renal stones presented with complaint of diffuse body pains, fever, chills, malaise and headache since last night. Patient was seen 2 days ago with right flank pain and diagnosed with UTI and discharged home on Bactrim antibiotics. Patient did not take antibiotics until yesterday. Patient denies nausea or vomiting. Patient also reported persistent urinary frequency and dysuria which has been persistent since last visit 2 days ago. Patient denies any other symptoms Timing/Duration: 24 hours Past History - Past Medical History Allergies/Adverse Reactions: Allergies Allergy/AdvReac Type Severity Reaction Status Date / Time No Known Allergies Allergy Verified 09/13/18 11:22 Home Medications: Ambulatory Orders traZODone HCL [Trazodone HCl] 50 mg PO HS 03/10/18 Cephalexin Monohydrate [Keflex -] 500 mg PO BID #14 capsule 03/31/18 Sulfamethoxazole/Trimethoprim [Bactrim Ds Tablet] 1 each PO BID 14 Days #28 tablet MDD 2 tab 09/11/18 Cardiac Disorders: Yes (MURMUR) COPD: No Psychiatric Problems: Yes (ANXIETY) - Immunization History Immunization Up to Date: Yes - Suicide/Smoking/Psychosocial Hx Smoking History: Never smoked Have you smoked in the past 12 months: No Hx Alcohol Use: No Drug/Substance Use Hx: No Substance Use Type: None, Marijuana Review of Systems - Review of Systems Able to Perform ROS?: Yes Is the patient limited Angolan proficient: No Constitutional: Yes: Chills, Fever, Malaise HEENTM: No: Symptoms Reported, See HPI, Eye Pain, Blurred Vision, Tearing, Recent change in vision, Double Vision, Cataracts, Ear Pain, Ocular Prothesis, Ear Discharge, Nose Pain, Nose Congestion, Tinnitus, Nose Bleeding, Hearing Loss , Throat Pain, Throat Swelling, Mouth Pain, Dental Problems, Difficulty Swallowing, Mouth Swelling, Other Respiratory: No: Symptoms reported, See HPI, Cough, Orthopnea, Shortness of Breath, SOB with Exertion, SOB at Rest, Stridor, Wheezing, Productive cough, Hemoptysis, Other Cardiac (ROS): No: Symptoms Reported, See HPI, Chest Pain, Edema, Irregular Heart Rate, Lightheadedness, Palpitations, Syncope, Chest Tightness, Other ABD/GI: No: Symptoms Reported, See HPI, Abdominal Distended, Abd. Pain w/ defecation, Blood Streaked Bowels, Constipated, Diarrhea, Difficulty Swallowing , Nausea, Poor Appetite, Poor Fluid Intake, Rectal Bleeding, Vomiting, Indigestion, Abdominal cramping, Tarry Stools, Other : Yes: Burning, Dysuria, Frequency, Flank Pain (right), Urgency Musculoskeletal: Yes: See HPI, Muscle Pain Neurological: Yes: Headache. No: Seizure, Unsteady Gait, Ataxia, Dizziness All Other Systems: Reviewed and Negative *Physical Exam - Vital Signs Last Vital Signs Temp Pulse Resp BP Pulse Ox 102.9 F H 129 H 24 H 127/69 100 09/13/18 11:20 09/13/18 11:20 09/13/18 11:20 09/13/18 11:20 09/13/18 11:20 - Physical Exam Comments: 09/13/18 12:41 GENERAL: Well developed, well nourished. Awake and alert. non-toxic looking. mild acute distress. HEENT: Normocephalic, atraumatic. PERRLA, EOMI. No conjunctival pallor. Sclera are non- icteric. Moist mucous membranes. Oropharynx is clear. NECK: Supple. Full ROM. No JVD. Carotid pulses 2+ and symmetric, without bruits. No thyromegaly. No lymphadenopathy. CARDIOVASCULAR: Regular rate and rhythm. No murmurs, rubs, or gallops. Distal pulses are 2+ and symmetric. PULMONARY: No evidence of respiratory distress. Lungs clear to auscultation bilaterally. No wheezing, rales or rhonchi. ABDOMINAL: Soft. Non-tender. Non-distended. No rebound or guarding. No organomegaly. Normoactive bowel sounds. MUSCULOSKELETAL Normal range of motion at all joints. No bony deformities or tenderness. mild right CVA tenderness. EXTREMITIES: No cyanosis. No clubbing. No edema. No calf tenderness. SKIN: Warm and dry. Normal capillary refill. No rashes. No jaundice. NEUROLOGICAL: Alert, awake, appropriate. Cranial nerves 2-12 intact. Normal speech. Toes are down-going bilaterally. Gait is normal without ataxia. PSYCHIATRIC: Cooperative. Good eye contact. Appropriate mood and affect. General Appearance: Yes: Nourished, Appropriately Dressed. No: Apparent Distress Moderate Sedation - Procedure Monitoring Vital Signs: Procedure Monitoring Vital Signs Temperature 102.9 F H 09/13/18 11:20 Pulse Rate 129 H 09/13/18 11:20 Respiratory Rate 24 H 09/13/18 11:20 Blood Pressure 127/69 09/13/18 11:20 O2 Sat by Pulse Oximetry (%) 100 09/13/18 11:20 ED Treatment Course - LABORATORY CBC & Chemistry Diagram: 09/13/18 12:26 09/13/18 12:26 - RADIOLOGY Radiology Studies Ordered: Category Date Time Status SPIRAL- RENAL-STONE CT [CT] Stat CT Scan 09/13/18 12:09 Ordered Medical Decision Making - Medical Decision Making 09/13/18 12:43 Patient with history of renal stones presented with complaint of fever, chills, bodyaches, malaise any urinary symptoms. Patient seen 2 days ago for urinary symptoms and right flank pain and discharged home on Bactrim antibiotics for UTI per patient denies that taking the medication until yesterday. Patient reported persistent symptoms of UTI. Clinical exams showed mild right CVA tenderness otherwise unremarkable. Tylenol 1 g IV given for fever and pain. His CBC, CMP, lactate level, blood cultures ordered. UA urine culture ordered as well. Spiral CT to rule out kidney stone ordered. Patient started on IV hydration with normal saline and IV Zosyn antibiotics. We assess after lab results. 09/13/18 12:46 rapid flu test ordered 09/13/18 15:52 flu test negative. CBC shows elevated WBC of 11.7. lactate level is 3.7. UA shows pos leuokcytes and many WBCs. abd CT shows non-obstructing 4mm right kidney stone. urology consults obtained and saw patient. IV hydration with NS@ 125/HR. PT seen by Dr. Quispe who advised patient advised for IV abx and follow- up with him after discharge in clinic and pt will not need surgical intervention. patient admitted for IV Abx under Dr. Patterson. cased discussed with Dr. Patterson to request to have ID Dr. Guerra consult . pt hemodynamically stable. Tylenol 1g IV given for fever and JASSO. pt started on IV zosyn Abx and admitted to Dr. Patterson. consult with Dr. Guerra placed as requested 09/13/18 15:59 *DC/Admit/Observation/Transfer Diagnosis at time of Disposition: Pyelonephritis UTI (urinary tract infection) Qualifiers: Urinary tract infection type: acute pyelonephritis Qualified Code(s): N10 - Acute pyelonephritis - Discharge Dispostion Condition at time of disposition: Stable Decision to Admit order: Yes - Referrals - Patient Instructions - Post Discharge Activity
[2018-09-13] MEDS ORDERED: PIPERACILLIN/TAZOB 3.375 GM 3.375 GM in DEXTROSE 5%-WATER - 50 ML IVPB SCH (13:00)
[2018-09-13 13:07] LABS: BASO % 0.2 % (0-2.0); HEMATOCRIT 32.1 % (32.4-45.2); HEMOGLOBIN 11.3 GM/dL (10.7-15.3); LYMPH % 7.1 % (8-40); MCH 29.3 pg (25.7-33.7); MCHC 35.2 g/dl (32.0-36.0); MEAN CELL VOLUME 83.4 fl (80-96); MEAN PLT VOLUME 8.8 fl (7.5-11.1); MONO % 9.9 % (3.8-10.2); NEUT % 82.8 % (42.8-82.8); PLATELET COUNT 182 K/MM3 (134-434); RBC 3.85 M/mm3 (3.60-5.2); WHITE BLOOD COUNT 11.7 K/mm3 (4.0-10.0)
[2018-09-13 13:08] LABS: URINE APPEARANCE SLCLOUDY; URINE BILIRUBIN NEGATIVE (<2.0 mg/dL); URINE GLUCOSE (UA) 3+ (NEGATIVE); URINE KETONE NEGATIVE (NEGATIVE); URINE LEUK ESTERASE 2+ (NEGATIVE); URINE NITRITE NEGATIVE (NEGATIVE); URINE PROTEIN 2+ (NEGATIVE); URINE UROBILINOGEN 4.0 E.U/dl mg/dL (0.2-1.0)
[2018-09-13 13:09] LABS: URINE COLOR DK YELLOW
[2018-09-13 13:15] LABS: EPI CELLS MANY /HPF (FEW); URINE BACTERIA MODERATE /hpf (NONE SEEN); URINE MUCUS RARE
[2018-09-13 13:18] LABS: ALBUMIN 2.7 g/dl (3.4-5.0); ALK PHOS 59 U/L (45-117); ANION GAP 12 MMOL/L (8-16); BLOOD UREA NITROGEN 8 mg/dL (7-18); CALCIUM 8.2 mg/dL (8.5-10.1); CHLORIDE 105 mmol/L (98-107); CO2 21 mmol/L (21-32); CREATININE 1.1 mg/dL (0.55-1.3); GLUCOSE,RANDOM 129 mg/dL (74-106); POTASSIUM 3.4 mmol/L (3.5-5.1); SGOT/AST 13 U/L (15-37); SGPT/ALT 17 U/L (13-61); SODIUM 137 mmol/L (136-145); TOT PROT 6.1 g/dl (6.4-8.2)
[2018-09-13] MEDS ORDERED: PIPERACILLIN/TAZOB 3.375 GM 3.375 GM/50 ML BAG IVPB ONE (13:19)
--- NOTE | 2018-09-13 14:42 | CON.GU ---
Consult Consult Specialty:: Reason for Consultation:: UTI - History of Present Illness Chief Complaint: abd pain History of Present Illness: 22 yo f with history of renal stones presented with complaint of diffuse body pains, fever, chills, malaise and headache since last night. Patient was seen 2 days ago with right flank pain and diagnosed with UTI and discharged home on Bactrim antibiotics. Patient did not take antibiotics until yesterday. Patient denies nausea or vomiting. Patient also reported persistent urinary frequency and dysuria which has been persistent since last visit 2 days ago. Patient denies any other symptoms. She was found to have fever to 102, elevated lactic acid and R LP renal calc and cons req. - History Source History Provided By: Patient, Medical Record - Alcohol/Substance Use Hx Alcohol Use: No - Smoking History Smoking history: Never smoked Have you smoked in the past 12 months: No Home Medications - Allergies Allergies/Adverse Reactions: Allergies Allergy/AdvReac Type Severity Reaction Status Date / Time No Known Allergies Allergy Verified 09/13/18 11:22 - Home Medications Home Medications: Ambulatory Orders traZODone HCL [Trazodone HCl] 50 mg PO HS 03/10/18 Cephalexin Monohydrate [Keflex -] 500 mg PO BID #14 capsule 03/31/18 Sulfamethoxazole/Trimethoprim [Bactrim Ds Tablet] 1 each PO BID 14 Days #28 tablet MDD 2 tab 09/11/18 Physical Exam- Vital Signs: Vital Signs Temperature 102.9 F H 09/13/18 11:20 Pulse Rate 129 H 09/13/18 11:20 Respiratory Rate 24 H 09/13/18 11:20 Blood Pressure 127/69 09/13/18 11:20 O2 Sat by Pulse Oximetry (%) 100 09/13/18 11:20 Gastrointestinal: Yes: Soft, Tenderness, Epigastrium Renal/: Yes: CVA Tenderness - Right Labs: CBC, BMP 09/13/18 12:26 09/13/18 12:26 Imaging - Results Cat Scan: Image Reviewed Problem List - Problems (1) Kidney calculi Code(s): N20.0 - CALCULUS OF KIDNEY (2) Pyelonephritis Code(s): N12 - TUBULO-INTERSTITIAL NEPHRITIS, NOT SPCF ACUTE OR CHRONIC (3) UTI (urinary tract infection) Assessment/Plan: ur c+s, iv abxs, f/u after disch to book ESWL after UTI resolved Code(s): N39.0 - URINARY TRACT INFECTION, SITE NOT SPECIFIED
[2018-09-13] MEDS ORDERED: ONDANSETRON *ODT* 4 MG TABLET SL ONE (16:40)
[2018-09-13] MEDS ORDERED: ONDANSETRON *ODT* 4 MG TABLET ONE (16:47)
[2018-09-13] MEDS ORDERED: SODIUM CHLORIDE 1,000 ML IV SCH (17:00)
[2018-09-13] MEDS: D5-1/2NS+20 MEQ KCL - 20 MEQ/1,000 ML INFUS.BAG IV SCH (17:49)
[2018-09-13] MEDS ORDERED: PIPERACILLIN/TAZOBACTAM 3.375 GM VIAL IVPB ONE (18:04)
[2018-09-13] MEDS ORDERED: DEXTROSE 5%-WATER - 50 ML IVPB ONE (18:05)
[2018-09-13] MEDS: PIPERACILLIN/TAZOB 3.375 GM 3.375 GM in DEXTROSE 5%-WATER - 50 ML IVPB SCH (18:06)
[2018-09-13 18:20] VITALS: BMI 25.4
[2018-09-13] MEDS ORDERED: ONDANSETRON 4 MG TABLET PO ONE ×2 (20:00→20:15)
[2018-09-13] MEDS: traMADol HCL 50 MG TABLET PO PRN (20:27)
[2018-09-13] MEDS ORDERED: ACETAMINOPHEN 325 MG TABLET (FP) PO ONE (22:16)
[2018-09-13] MEDS: traZODone HCL 50 MG TABLET (FP) PO SCH (22:23)
[2018-09-13] MEDS: HEPARIN NA (PORCINE) 5,000 UNITS/ML 1ML VIAL SQ SCH (22:23)
[2018-09-14] MEDS ORDERED: DEXTROSE 5%-WATER - 50 ML IVPB ONE ×2 (01:53→15:33)
[2018-09-14] MEDS ORDERED: PIPERACILLIN/TAZOBACTAM 3.375 GM VIAL IVPB ONE (01:53)
[2018-09-14] MEDS ORDERED: ONDANSETRON 4 MG/2 ML VIAL IVPUSH PRN (02:14)
[2018-09-14] MEDS: D5-1/2NS+20 MEQ KCL - 20 MEQ/1,000 ML INFUS.BAG IV SCH ×2 (02:22→15:00)
[2018-09-14] MEDS: PIPERACILLIN/TAZOB 3.375 GM 3.375 GM in DEXTROSE 5%-WATER - 50 ML IVPB SCH (02:22)
[2018-09-14] MEDS: INSULIN SLIDING SCALE (NOVOLOG) 1 VIAL SQ SCH ×2 (06:06→18:32)
[2018-09-14] MEDS ORDERED: INSULIN SLIDING SCALE (NOVOLOG) 1 VIAL SQ SCH (07:00)
[2018-09-14 08:40] LABS: BASO % 0.2 % (0-2.0); EOS % 0.1 % (0-4.5); HEMATOCRIT 34.2 % (32.4-45.2); HEMOGLOBIN 11.2 GM/dL (10.7-15.3); LYMPH % 5.8 % (8-40); MCH 27.8 pg (25.7-33.7); MCHC 32.8 g/dl (32.0-36.0); MEAN CELL VOLUME 84.7 fl (80-96); MEAN PLT VOLUME 8.8 fl (7.5-11.1); MONO % 5.9 % (3.8-10.2); PLATELET COUNT 175 K/MM3 (134-434); RBC 4.04 M/mm3 (3.60-5.2); RDW 13.4 % (11.6-15.6); WHITE BLOOD COUNT 8.3 K/mm3 (4.0-10.0)
[2018-09-14] MEDS: traMADol HCL 50 MG TABLET PO PRN ×2 (08:55→18:45)
[2018-09-14] MEDS: ACETAMINOPHEN 325 MG TABLET (FP) PO PRN ×2 (08:56→21:21)
[2018-09-14] MEDS: HEPARIN NA (PORCINE) 5,000 UNITS/ML 1ML VIAL SQ SCH ×2 (09:04→21:22)
[2018-09-14 09:19] LABS: ALBUMIN 2.5 g/dl (3.4-5.0); ALK PHOS 60 U/L (45-117); ANION GAP 10 MMOL/L (8-16); BILIRUBIN,TOTAL 1.1 mg/dL (0.2-1); BLOOD UREA NITROGEN 6 mg/dL (7-18); CALCIUM 7.9 mg/dL (8.5-10.1); CHLORIDE 105 mmol/L (98-107); CO2 21 mmol/L (21-32); GLUCOSE,RANDOM 140 mg/dL (74-106); POTASSIUM 4.3 mmol/L (3.5-5.1); SGOT/AST 13 U/L (15-37); SGPT/ALT 15 U/L (13-61); SODIUM 135 mmol/L (136-145); TOT PROT 5.9 g/dl (6.4-8.2)
[2018-09-14] MEDS ORDERED: PIPERACILLIN/TAZOB 3.375 GM 3.375 GM in DEXTROSE 5%-WATER - 50 ML IVPB SCH (10:00)
--- NOTE | 2018-09-14 15:03 | HP ---
Admitting History and Physical - Admission History of Present Illness: atbrandie with history of renal stones presented with complaint of diffuse body pains, fever, chills, malaise and headache since last night. Patient was seen 2 days ago with right flank pain and diagnosed with UTI and discharged home on Bactrim antibiotics. Patient did not take antibiotics until yesterday. Patient denies nausea or vomiting. Patient also reported persistent urinary frequency and dysuria which has been persistent since last visit 2 days ago. Patient denies any other symptoms - Past Medical History Renal/: Yes: UTI - Smoking History Smoking history: Never smoked Have you smoked in the past 12 months: No Aproximately how many cigarettes per day: 0 - Alcohol/Substance Use Hx Alcohol Use: No Home Medications - Allergies Allergies/Adverse Reactions: Allergies Allergy/AdvReac Type Severity Reaction Status Date / Time No Known Allergies Allergy Verified 09/13/18 11:22 - Home Medications Home Medications: Ambulatory Orders traZODone HCL [Trazodone HCl] 50 mg PO HS 03/10/18 Cephalexin Monohydrate [Keflex -] 500 mg PO BID #14 capsule 03/31/18 Sulfamethoxazole/Trimethoprim [Bactrim Ds Tablet] 1 each PO BID 14 Days #28 tablet MDD 2 tab 09/11/18 Physical Examination Vital Signs: Vital Signs Temperature 98.3 F 09/14/18 14:37 Pulse Rate 97 H 09/14/18 14:37 Respiratory Rate 20 09/14/18 14:37 Blood Pressure 115/71 09/14/18 14:37 O2 Sat by Pulse Oximetry (%) 97 09/13/18 21:00 Cardiovascular: Yes: Regular Rate and Rhythm Respiratory: Yes: Regular, CTA Bilaterally Gastrointestinal: Yes: Normal Bowel Sounds, Soft. No: Tenderness Labs: CBC, BMP 09/14/18 08:15 09/14/18 08:15 Imaging - Results Cat Scan: Report Reviewed Problem List - Problems (1) Pyelonephritis Assessment/Plan: -IV abx Urology and ID consult Code(s): N12 - TUBULO-INTERSTITIAL NEPHRITIS, NOT SPCF ACUTE OR CHRONIC (2) Kidney calculi Code(s): N20.0 - CALCULUS OF KIDNEY (3) Sepsis Assessment/Plan: IVF and IV abx ID consult Follow labs Code(s): A41.9 - SEPSIS, UNSPECIFIED ORGANISM
--- NOTE | 2018-09-14 15:19 | PN ---
Progress Note (short form) - Note Progress Note: ID Consult dictated UTI/ Possible sepsis secondary to UTI Nephrolithiasis Await c/s Ceftriaxone 2gm q24h
[2018-09-14] MEDS: CEFTRIAXONE 2 GM in DEXTROSE 5%-WATER - 50 ML IVPB SCH (15:46)
--- NOTE | 2018-09-14 16:18 | CONS ---
DATE OF CONSULTATION: DATE OF DICTATION: 09/14/2018 The patient is a 22-year-old female evaluated for sepsis secondary to focus. The patient has a history of recurrent nephrolithiasis and a renal colic. She is now admitted with complaints of fevers, chills, right flank pain, body ache, malaise and headache. The patient was seen in the emergency room on September 11, 2018. [facility] was [facility] for a urinary tract infection. The patient was evaluated and discharged home on Bactrim. She now presents with worsening right flank pain, body ache and malaise, and fever and chills. In the emergency room the patient was noted to have a fever to 102.9. Urinalysis showed 44 white cells and urine culture now growing a lactose director of automation. The patient reports a history of 4 or 5 episodes of nephrolithiasis and recurrent urinary tract infections. Urine cultures in the past have grown E. coli and Citrobacter. Her cultures were obtained and she was empirically treated with Zosyn. The patient reports improvement in the right flank pain. She has had urinary frequency and urgency. Her course has been complicated by an elevated white blood cell count and an elevated lactic acid level. PAST MEDICAL HISTORY: Positive for nephrolithiasis. ALLERGIES: No known allergies. MEDICATIONS: At the present time include Zofran, Tylenol, heparin, trazodone, and Ultram. SOCIAL HISTORY: She lives in the community. She is a nonsmoker and a nondrinker. SYSTEMS REVIEW: Neurologic: No loss of consciousness, seizure activity or focal weakness. Cardiac: Negative chest pain or palpitations. Respiratory: Negative cough and sputum production. Gastrointestinal: Negative vomiting, no diarrhea. Genitourinary: As per HPI. LABORATORY DATA: White count 8.3, hematocrit 34.2, and platelet count 175. Creatinine is 1.0, lactic acid 2.4. Urinalysis shows 44 white cells. CAT scan of the abdomen and pelvis shows a 4-mm nonobstructing right renal stone and minimal dilatation of the proximal right ureter. No evidence of a right ureteral stone or right renal hydronephrosis. PHYSICAL EXAMINATION: General: The patient is awake and alert, ambulatory, and not acutely toxic appearing. Vital Signs: Temperature 99.4, T-Max 102.9, blood pressure 98/72, pulse 127 and regular, and respirations 20 per minute. HEENT: Sclerae anicteric. Heart: Sounds S1, S2. Lungs: Clear. Abdomen: Soft, nontender. Slight right CVA tenderness to palpation. Extremities: Negative for edema. IMPRESSION: 1. Urinary tract infection/possible sepsis secondary to a urinary tract infection. 2. Nephrolithiasis. 3. Leukocytosis. 4. Lactic acidosis. PLAN: Await culture results. Empiric antibiotic coverage with ceftriaxone 2 g IV piggyback every 24 hours pending culture results. Urology followup. Thank you for the kind referral. ESTUARDO BOCANEGRA M.D. ROBERTA/[id number]
[2018-09-14] MEDS: ACETAMINOPHEN/CAFFEINE/BUTALBITAL 1 TAB PO PRN (19:41)
[2018-09-14] MEDS: traZODone HCL 50 MG TABLET (FP) PO SCH (21:22)
[2018-09-15] MEDS: INSULIN SLIDING SCALE (NOVOLOG) 1 VIAL SQ SCH ×2 (06:13→18:05)
[2018-09-15 06:32] LABS: BASO % 0.3 % (0-2.0); EOS % 1.4 % (0-4.5); HEMATOCRIT 33.8 % (32.4-45.2); HEMOGLOBIN 11.1 GM/dL (10.7-15.3); LYMPH % 15.1 % (8-40); MCH 27.5 pg (25.7-33.7); MCHC 32.8 g/dl (32.0-36.0); MEAN PLT VOLUME 8.4 fl (7.5-11.1); MONO % 9.8 % (3.8-10.2); NEUT % 73.4 % (42.8-82.8); PLATELET COUNT 201 K/MM3 (134-434); RBC 4.03 M/mm3 (3.60-5.2); RDW 13.8 % (11.6-15.6); WHITE BLOOD COUNT 7.5 K/mm3 (4.0-10.0)
[2018-09-15 06:56] LABS: ALBUMIN 2.3 g/dl (3.4-5.0); ALK PHOS 57 U/L (45-117); ANION GAP 6 MMOL/L (8-16); BILIRUBIN,TOTAL 0.4 mg/dL (0.2-1); BLOOD UREA NITROGEN 6 mg/dL (7-18); CHLORIDE 106 mmol/L (98-107); CO2 26 mmol/L (21-32); CREATININE 0.7 mg/dL (0.55-1.3); GLUCOSE,RANDOM 93 mg/dL (74-106); POTASSIUM 3.9 mmol/L (3.5-5.1); SGOT/AST 12 U/L (15-37); SGPT/ALT 16 U/L (13-61); SODIUM 138 mmol/L (136-145); TOT PROT 5.8 g/dl (6.4-8.2)
[2018-09-15] MEDS: ACETAMINOPHEN/CAFFEINE/BUTALBITAL 1 TAB PO PRN ×2 (09:00→18:07)
[2018-09-15] MEDS ORDERED: DEXTROSE 5%-WATER - 50 ML IVPB ONE (09:24)
[2018-09-15] MEDS: HEPARIN NA (PORCINE) 5,000 UNITS/ML 1ML VIAL SQ SCH ×2 (10:10→21:40)
[2018-09-15] MEDS: CEFTRIAXONE 2 GM in DEXTROSE 5%-WATER - 50 ML IVPB SCH (10:10)
--- NOTE | 2018-09-15 12:15 | PN ---
Progress Note, Physician Chief Complaint: Urosepsis History of Present Illness: NAD Denies any pain Febrile last night afebrile this AM UC: Ecoli On IV rocephin Seen by ID wants to go home - Current Medication List Current Medications: Active Medications Acetaminophen (Tylenol -) 650 mg PO Q4H PRN PRN Reason: FEVER Last Admin: 09/14/18 21:21 Dose: 650 mg Acetaminophen/Butalbital/Caffeine (Fioricet -) 1 tablet PO Q4H PRN PRN Reason: HEADACHE Last Admin: 09/15/18 09:00 Dose: 1 tablet Heparin Sodium (Porcine) (Heparin -) 5,000 unit SQ BID SHA Last Admin: 09/15/18 10:10 Dose: 5,000 unit Potassium Chloride/Dextrose/Sod Cl (D5-1/2ns+20 Meq Kcl -) 20 meq in 1,000 mls @ 125 mls/hr IV ASDIR SHA Last Admin: 09/14/18 15:00 Dose: 125 mls/hr Ceftriaxone Sodium 2 gm/ (Dextrose) 50 mls @ 100 mls/hr IVPB DAILY SHA; Protocol Last Admin: 09/15/18 10:10 Dose: 100 mls/hr Insulin Aspart (Novolog Vial Sliding Scale -) 1 vial SQ BIDAC SHA; Protocol Last Admin: 09/15/18 06:13 Dose: Not Given Ondansetron HCl (Zofran Injection) 4 mg IVPUSH Q6H PRN PRN Reason: NAUSEA AND/OR VOMITING Last Admin: 09/14/18 08:55 Dose: 4 mg Trazodone HCl (Desyrel -) 50 mg PO HS SHA Last Admin: 09/14/18 21:22 Dose: 50 mg - Objective Vital Signs: Vital Signs Temperature 99.0 F 09/15/18 10:00 Pulse Rate 106 H 09/15/18 10:00 Respiratory Rate 20 09/15/18 10:00 Blood Pressure 121/75 09/15/18 10:00 O2 Sat by Pulse Oximetry (%) 97 09/13/18 21:00 Constitutional: Yes: Well Nourished, No Distress, Calm Cardiovascular: Yes: Regular Rate and Rhythm Respiratory: Yes: Regular Gastrointestinal: Yes: Normal Bowel Sounds, Soft Musculoskeletal: Yes: WNL Extremities: Yes: WNL Edema: No Peripheral Pulses WNL: Yes Neurological: Yes: Alert, Oriented Psychiatric: Yes: Alert, Oriented Labs: CBC, BMP 09/15/18 06:00 09/15/18 06:00 Problem List - Problems (1) Pyelonephritis Assessment/Plan: -right renal non obstructing stone on CT -Seen by ID -On IV abx -afebrile now -UC: Microbiology 09/13/18 12:26 Blood Culture - Preliminary Blood - Peripheral Venous NO GROWTH OBTAINED AFTER 48 HOURS, INCUBATION TO CONTINUE FOR 3 DAYS. 09/13/18 12:26 Blood Culture - Preliminary Blood - Peripheral Venous NO GROWTH OBTAINED AFTER 48 HOURS, INCUBATION TO CONTINUE FOR 3 DAYS. 09/13/18 12:26 Urine Culture - Final Urine - Urine Clean Catch Escherichia Coli Code(s): N12 - TUBULO-INTERSTITIAL NEPHRITIS, NOT SPCF ACUTE OR CHRONIC (2) Sepsis Assessment/Plan: Cultures reviewed -IV abx -afebrile -ID on board -Repeat Lactic acid normal Code(s): A41.9 - SEPSIS, UNSPECIFIED ORGANISM (3) UTI (urinary tract infection) Code(s): N39.0 - URINARY TRACT INFECTION, SITE NOT SPECIFIED Qualifiers: Urinary tract infection type: acute pyelonephritis Qualified Code(s): N10 - Acute pyelonephritis Assessment/Plan see problem list self ambulatory d/c in AM if afebrile and cleared by ID
[2018-09-15] MEDS: traZODone HCL 50 MG TABLET (FP) PO SCH (21:39)
[2018-09-16] MEDS ORDERED: DEXTROSE 5%-WATER - 50 ML IVPB ONE (09:01)
[2018-09-16] MEDS: CEFTRIAXONE 2 GM in DEXTROSE 5%-WATER - 50 ML IVPB SCH (09:09)
[2018-09-16] MEDS: HEPARIN NA (PORCINE) 5,000 UNITS/ML 1ML VIAL SQ SCH (10:36)
--- NOTE | 2018-09-16 10:54 | DS ---
Physical Examination Vital Signs: Vital Signs Temperature 98.4 F 09/16/18 05:52 Pulse Rate 94 H 09/16/18 05:52 Respiratory Rate 18 09/16/18 09:00 Blood Pressure 129/66 09/16/18 05:52 O2 Sat by Pulse Oximetry (%) 96 09/16/18 09:00 Findings/Remarks: patient with history of renal stones presented with complaint of diffuse body pains, fever, chills, malaise and headache since last night. Patient was seen 2 days ago with right flank pain and diagnosed with UTI and discharged home on Bactrim antibiotics. Patient did not take antibiotics until yesterday. Patient denies nausea or vomiting. Patient also reported persistent urinary frequency and dysuria which has been persistent since last visit 2 days ago. Patient denies any other symptoms Constitutional: Yes: Well Nourished, No Distress, Calm Cardiovascular: Yes: Regular Rate and Rhythm Respiratory: Yes: Regular Gastrointestinal: Yes: Normal Bowel Sounds, Soft Musculoskeletal: Yes: WNL Extremities: Yes: WNL Edema: No Peripheral Pulses WNL: Yes Neurological: Yes: Alert, Oriented Psychiatric: Yes: Alert, Oriented Labs: CBC, BMP 09/15/18 06:00 09/15/18 06:00 Discharge Summary Reason For Visit: DIFFICULTY BREATHING, BODYACHE Current Active Problems Pyelonephritis (Acute) Sepsis (Acute) UTI (urinary tract infection) (Acute) Hospital Course: Laboratory Last Values WBC 7.5 K/mm3 (4.0-10.0) 09/15/18 06:00 RBC 4.03 M/mm3 (3.60-5.2) 09/15/18 06:00 Hgb 11.1 GM/dL (10.7-15.3) 09/15/18 06:00 Hct 33.8 % (32.4-45.2) 09/15/18 06:00 MCV 84.0 fl (80-96) 09/15/18 06:00 MCH 27.5 pg (25.7-33.7) 09/15/18 06:00 MCHC 32.8 g/dl (32.0-36.0) 09/15/18 06:00 RDW 13.8 % (11.6-15.6) 09/15/18 06:00 Plt Count 201 K/MM3 (134-434) 09/15/18 06:00 MPV 8.4 fl (7.5-11.1) 09/15/18 06:00 Absolute Neuts (auto) 5.5 K/mm3 (1.5-8.0) 09/15/18 06:00 Neutrophils % 73.4 % (42.8-82.8) 09/15/18 06:00 Lymphocytes % 15.1 % (8-40) D 09/15/18 06:00 Monocytes % 9.8 % (3.8-10.2) 09/15/18 06:00 Eosinophils % 1.4 % (0-4.5) D 09/15/18 06:00 Basophils % 0.3 % (0-2.0) 09/15/18 06:00 Nucleated RBC % 0 % (0-0) 09/15/18 06:00 Sodium 138 mmol/L (136-145) 09/15/18 06:00 Potassium 3.9 mmol/L (3.5-5.1) 09/15/18 06:00 Chloride 106 mmol/L (98-107) 09/15/18 06:00 Carbon Dioxide 26 mmol/L (21-32) 09/15/18 06:00 Anion Gap 6 MMOL/L (8-16) L 09/15/18 06:00 BUN 6 mg/dL (7-18) L 09/15/18 06:00 Creatinine 0.7 mg/dL (0.55-1.3) 09/15/18 06:00 Creat Clearance w eGFR > 60 (>60) 09/15/18 06:00 POC Glucometer 86 UNITS (80-120) 09/15/18 06:12 Random Glucose 93 mg/dL (74-106) 09/15/18 06:00 Lactic Acid 1.5 mmol/L (0.4-2.0) 09/15/18 06:00 Calcium 8.0 mg/dL (8.5-10.1) L 09/15/18 06:00 Total Bilirubin 0.4 mg/dL (0.2-1) 09/15/18 06:00 AST 12 U/L (15-37) L 09/15/18 06:00 ALT 16 U/L (13-61) 09/15/18 06:00 Alkaline Phosphatase 57 U/L (45-117) 09/15/18 06:00 Total Protein 5.8 g/dl (6.4-8.2) L 09/15/18 06:00 Albumin 2.3 g/dl (3.4-5.0) L 09/15/18 06:00 Beta HCG, Quant < 1.0 mIU/ml 09/14/18 08:15 Urine Color Dk yellow 09/13/18 12:26 Urine Appearance Slcloudy 09/13/18 12:26 Urine pH 5.0 (5.0-8.0) 09/13/18 12:26 Ur Specific [place] 1.016 (1.010-1.035) 09/13/18 12:26 Urine Protein 2+ (NEGATIVE) H 09/13/18 12:26 Urine Glucose (UA) 3+ (NEGATIVE) H 09/13/18 12:26 Urine Ketones Negative (NEGATIVE) 09/13/18 12:26 Urine Blood Negative (NEGATIVE) 09/13/18 12:26 Urine Nitrite Negative (NEGATIVE) 09/13/18 12:26 Urine Bilirubin Negative (<2.0 mg/dL) 09/13/18 12:26 Urine Urobilinogen 4.0 e.u/dl mg/dL (0.2-1.0) H 09/13/18 12:26 Ur Leukocyte Esterase 2+ (NEGATIVE) H 09/13/18 12:26 Urine WBC (Auto) 44 /hpf (3-5) 09/13/18 12:26 Urine RBC (Auto) 3 /hpf (0-3) 09/13/18 12:26 Ur Epithelial Cells Many /HPF (FEW) 09/13/18 12:26 Urine Bacteria Moderate /hpf (NONE SEEN) 09/13/18 12:26 Urine Mucus Rare 09/13/18 12:26 Influenza A (Rapid) Negative 09/13/18 12:30 Influenza B (Rapid) Negative 09/13/18 12:30 Microbiology 09/13/18 12:26 Blood - Peripheral Venous Blood Culture - Preliminary NO GROWTH OBTAINED AFTER 48 HOURS, INCUBATION TO CONTINUE FOR 3 DAYS. 09/13/18 12:26 Blood - Peripheral Venous Blood Culture - Preliminary NO GROWTH OBTAINED AFTER 48 HOURS, INCUBATION TO CONTINUE FOR 3 DAYS. 09/13/18 12:26 Urine - Urine Clean Catch Urine Culture - Final Escherichia Coli Condition: Stable - Instructions Diet, Activity, Other Instructions: Follow up with Urology within next 2 weeks for kidney stone Referrals: Sara Patterson MD [Primary Care Provider] - Kale Quispe MD [Staff Physician] - Disposition: HOME - Home Medications Comprehensive Discharge Medication List: Ambulatory Orders traZODone HCL [Trazodone HCl] 50 mg PO HS 03/10/18 Cephalexin Monohydrate [Keflex -] 500 mg PO BID #14 capsule 03/31/18 Acetaminophen [Tylenol .Regular Strength -] 650 mg PO Q4H PRN tablet 09/15/18 Cefuroxime Axetil [Ceftin -] 500 mg PO Q12H #14 tablet 09/15/18
--- NOTE | 2018-09-16 11:22 | PN ---
Progress Note, Physician History of Present Illness: No complaints No c/o flank pain No dysuria/ hematuria No fever/ chills - Current Medication List Current Medications: Active Medications Acetaminophen (Tylenol -) 650 mg PO Q4H PRN PRN Reason: FEVER Last Admin: 09/14/18 21:21 Dose: 650 mg Acetaminophen/Butalbital/Caffeine (Fioricet -) 1 tablet PO Q4H PRN PRN Reason: HEADACHE Last Admin: 09/15/18 18:07 Dose: 1 tablet Heparin Sodium (Porcine) (Heparin -) 5,000 unit SQ BID SHA Last Admin: 09/16/18 10:36 Dose: Not Given Ceftriaxone Sodium 2 gm/ (Dextrose) 50 mls @ 100 mls/hr IVPB DAILY SHA; Protocol Last Admin: 09/16/18 09:09 Dose: 100 mls/hr Ondansetron HCl (Zofran Injection) 4 mg IVPUSH Q6H PRN PRN Reason: NAUSEA AND/OR VOMITING Last Admin: 09/14/18 08:55 Dose: 4 mg Trazodone HCl (Desyrel -) 50 mg PO HS SHA Last Admin: 09/15/18 21:39 Dose: 50 mg - Objective Vital Signs: Vital Signs Temperature 98.2 F 09/16/18 10:00 Pulse Rate 96 H 09/16/18 10:00 Respiratory Rate 18 09/16/18 10:00 Blood Pressure 128/70 09/16/18 10:00 O2 Sat by Pulse Oximetry (%) 96 09/16/18 09:00 Constitutional: Yes: No Distress Cardiovascular: Yes: Regular Rate and Rhythm, S1, S2 Respiratory: Yes: CTA Bilaterally Gastrointestinal: Yes: Normal Bowel Sounds, Soft. No: Tenderness Genitourinary: No: CVA Tenderness - Left, CVA Tenderness - Right Edema: No Labs: CBC, BMP 09/15/18 06:00 09/15/18 06:00 Assessment/Plan UTI/ Pyelonephritis Nephrolithiasis Switch to po cephalosporin additional 7d
[2018-09-16 14:11] VITALS: BP 109/68; PULSE 90; TEMP 98
== END 2018-09-16 14:57 | disposition home or self-care (01) | DRG 463 ==
LOC: JER 11:01 → JERBED 15:03 → OBSVTOIN 17:05 → INTOOBSV 17:05 → J7W 17:53
PROVIDERS: ADMIT Family Medicine; ATTEND Family Medicine
DX: N10 Acute pyelonephritis (principal); R51 Headache; R01.1 Cardiac murmur, unspecified; F41.9 Anxiety disorder, unspecified; N20.0 Calculus of kidney; N39.0 Urinary tract infection, site not specified; N12 Tubulo-interstitial nephritis, not specified as acute or chronic
CPT/HCPCS: 36415; 74176; 80053; 81003; 81015; 82962; 83605; 84702; 85025; 87040; 87086; 87186; 87389; 87804; 99282-25; G0378; J0131; J1644; J7030; Q0162

== ENCOUNTER 2019-09-27 08:48 | Emergency (ER) | payer OTHER ==
[2019-09-27 09:24] VITALS: BP 127/78; PULSE 90; TEMP 98.1; BMI 29.2
--- NOTE | 2019-09-27 09:31 | PDOC ---
History of Present Illness - General Chief Complaint: Injury Stated Complaint: FALL/PAIN NECK/LF HAND/LF BUTTOCK Time Seen by Provider: 09/27/19 09:15 History Source: Patient - History of Present Illness Occurred: reports: other Upper Extremity Pain Location: right: wrist Method of Injury: reports: fell Past History - Past Medical History Allergies/Adverse Reactions: Allergies Allergy/AdvReac Type Severity Reaction Status Date / Time No Known Allergies Allergy Verified 09/27/19 09:10 Home Medications: Ambulatory Orders traZODone HCL [Trazodone HCl] 50 mg PO HS 03/10/18 Cephalexin Monohydrate [Keflex -] 500 mg PO BID #14 capsule 03/31/18 Acetaminophen [Tylenol .Regular Strength -] 650 mg PO Q4H PRN tablet 09/15/18 Cefuroxime Axetil [Ceftin -] 500 mg PO Q12H #14 tablet 09/15/18 Cardiac Disorders: Yes (MURMUR) COPD: No Psychiatric Problems: Yes (ANXIETY) - Immunization History Immunization Up to Date: Yes - Psycho Social/Smoking Cessation Hx Smoking History: Never smoked Have you smoked in the past 12 months: No Number of Cigarettes Smoked Daily: 0 Cigars Per Day: 0 Information on smoking cessation initiated: No Hx Alcohol Use: No Drug/Substance Use Hx: No Substance Use Type: None, Marijuana Hx Substance Use Treatment: No Review of Systems - Review of Systems Musculoskeletal: Yes: Back Pain, Joint Pain, Neck Pain. No: Joint Swelling Neurological: No: Headache, Dizziness *Physical Exam - Vital Signs Last Vital Signs Temp Pulse Resp BP Pulse Ox 98.1 F 90 16 127/78 100 09/27/19 09:10 09/27/19 09:10 09/27/19 09:10 09/27/19 09:10 09/27/19 09:10 - Physical Exam General Appearance: Yes: Appropriately Dressed. No: Apparent Distress HEENT: positive: Normal Voice Neck: positive: Supple Respiratory/Chest: negative: Respiratory Distress Gastrointestinal/Abdominal: positive: Soft. negative: Tender Musculoskeletal: positive: Normal Inspection. negative: Vertebral Tenderness Extremity: positive: Normal Inspection, Normal Range of Motion. negative: Tender, Swelling Integumentary: positive: Dry, Warm Neurologic: positive: Fully Oriented, Alert, Normal Mood/Affect, Motor Strength 5/5 ED Treatment Course - RADIOLOGY Radiology Studies Ordered: Category Date Time Status WRIST-LEFT [RAD] Stat Radiology 09/27/19 09:19 Ordered Medical Decision Making - Medical Decision Making 09/27/19 11:29 23-year-old female, no sig hx, complaining of generalized body aches after slip and fall on black ice several days ago. Complain of pain mostly to the L wrist. No head injury, LOC, headache, dizziness, nausea or vomiting. Taking multiple [id number] meds with minimal relief per patient. Well-appearing and stable with no evidence of serious injury on exam. X-ray wrist negative. DC with to continue [id number] meds Discharge - Discharge Information Problems reviewed: Yes Clinical Impression/Diagnosis: Fall Qualifiers: Encounter type: initial encounter Qualified Code(s): W19.XXXA - Unspecified fall, initial encounter Condition: Good Disposition: HOME - Follow up/Referral - Patient Discharge Instructions Patient Printed Discharge Instructions: DI for Wrist Sprain Additional Instructions: There was no evidence of serious injury on exam and your wrist xray was negative Take motrin or tylenol for pain as needed - Post Discharge Activity
[2019-09-27] MEDS ORDERED: ACETAMINOPHEN 325 MG TABLET (FP) PO ONE (09:37)
[2019-09-27] MEDS ORDERED: ACETAMINOPHEN 325 MG TABLET (FP) ONE (09:39)
[2019-09-27 11:49] LABS: EPI CELLS 3.8 /HPF (0-5/HPF); HYALINE CASTS 1 /lpf (0-8); PH,URINE 5.5 (5.0-8.0); URINE APPEARANCE CLEAR; URINE BILIRUBIN NEGATIVE (NEGATIVE); URINE COLOR YELLOW; URINE GLUCOSE (UA) NEGATIVE (NEGATIVE); URINE KETONE NEGATIVE (NEGATIVE); URINE LEUK ESTERASE 1+ (NEGATIVE); URINE NITRITE NEGATIVE (NEGATIVE); URINE PROTEIN NEGATIVE (NEGATIVE); URINE RBC 0 /hpf (0-4); URINE UROBILINOGEN 0.2 mg/dL (0.2-1.0); URINE WBC 18 /hpf (0-5)
== END 2019-09-27 09:58 | disposition home or self-care (01) ==
LOC: JER 08:48 → JERFT 08:48
CPT/HCPCS: 36415; 73110-TC-LT-FY; 81003; 86694; 86695; 86696; 87070; 87205; 87389; 87491; 87591; 99282-25